=== PATIENT | female | born 1965 | race Caucasian/White ===

== ENCOUNTER 2017-03-16 15:03 | Emergency (ER) | payer SELFPAY ==
[2017-03-16 15:09] VITALS: BP 134/89; BMI 27.3
--- NOTE | 2017-03-16 15:39 | DR.GENAD ---
HPI - PCP Primary Care Physician: NORM - Complaint/Symptoms Chief Complaint:: PATIENT WAS SEEN IN [place] WEDNESDAY NIGHT FOR LEFT LEG PAIN. SWELLING HAS INCREASED AND LEG IS PAINFULL TO TOUCH. - Nurses notes reviewed Nurses Notes Review: Yes - Source History Provided: Patient - Mode of Arrival Mode of Arrival: Ambulatory - Timing Onset of Chief Complaint: 03/14/17 Came on: Gradually - Duration Duration: Constant How lon Duration: Days - Location Location: left leg - Severity Severity: Moderate - Associated Signs and Symptoms Associated Signs and Symptoms: swelling - Other History Other History: seen in [place] for same problem, negative doppler on pain meds PMH - PMH Past Medical History: Yes Past Medical History: Arthritis, COPD Past Surgical History: Yes Surgical History: , Cholecystectomy - Family History History of Family Medical Conditions: Yes Family Medical History: Diabetes Mellitus, Hypertension - Social History Does patient currently use any type of tobacco product: Yes Have you used tobacco products in the last 12 months: Yes Type of Tobacco Use: Cigarettes How many years tobacco product used: 30 Does any household member use tobacco: Yes Alcohol Use: None Do you use any recreational Drugs:: No Lives With: Alone Lives Where: Home - infectious screening In the last 2 months have you had wt loss of >10#?: NO Have you had fever, night sweats or hemotysis?: No Have you traveled outside the country in the last 6 months?: No Isolation: Standard ROS - Review of Systems Constitutional: No Symptoms Reported Eyes: No Symptoms Reported ENTM: No Symptoms Reported Respiratoy: No Symptoms Reported Cardiovascular: No Symptoms Reported Gastrointestinal/Abdominal: No Symptoms Reported Genitourinary: No Symptoms Reported Neurological: No Symptoms Reported Musculoskeletal: No Symptoms Reported Integumentary: No Symptoms Reported Hematologic/Lymphatic: No Symptoms Reported Endocrine: No Symptoms Reported Psychiatric: Anxiety All Other Systems: Reviewed and Negative PE - Vital Signs Vitals: Temperature 98.6 F Pulse Rate 84 Respiratory Rate 16 Blood Pressure 134/89 O2 Sat by Pulse Oximetry 100 - General Limitations: No Limitations General Appearance: Alert, In No Apparent Distress - Head Head Exam: Normal Inspection - Eyes Eye exam: Normal Appearance, EOMI. negative: Scleral Icterus, Conjunctival Injection - ENT ENT Exam: Normal Exam External Ear Exam: Normal External Inspection - Neck Neck Exam: Normal Inspection, Full ROM, Trachea Midline - Respiratory Respiratory Exam: Normal Lung Sounds Bilat. negative: Accessory Muscle Use, Respiratory Distress Respiratory Exam: Bilateral Clear to Auscultation - Cardiovascular Cardiovascular Exam: Regular Rate - Extremities Extremities Exam: Full ROM, Tenderness. negative: Normal Inspection (left leg swelling) - Back Back Exam: Normal Inspection, Full ROM - Neurologic Neurological Exam: Alert, Oriented X3, CN II-XII Intact - Psychiatric Psychiatric Exam: Anxious - Skin Skin Exam: Intact, Normal Color ROR - Labs Reviewed Result Diagrams: 03/16/17 16:03 03/16/17 16:03 Laboratory: WBC 14.2 X10^3/uL (3.6-10.0) H 03/16/17 16:03 RBC 4.46 X10^6/uL (3.5-5.4) 03/16/17 16:03 Hgb 13.4 g/dL (12.0-16.0) 03/16/17 16:03 Hct 40.9 % (36.0-47.0) 03/16/17 16:03 MCV 91.7 fL (80.0-100.0) 03/16/17 16:03 MCH 30.1 pg (27.0-34.0) 03/16/17 16:03 MCHC 32.8 g/dL (33.0-35.0) L 03/16/17 16:03 RDW 14.5 % (11.6-16.5) 03/16/17 16:03 Plt Count 357 X10^3/uL (150.0-450.0) 03/16/17 16:03 MPV 8.5 fL (7.4-11.0) 03/16/17 16:03 Neut % 55.8 % (42.0-75.0) 03/16/17 16:03 Lymph % 32.7 % (21.0-51.0) 03/16/17 16:03 [place] % 6.2 % (0.0-13.0) 03/16/17 16:03 Eos % 4.1 % (0.9-2.9) H 03/16/17 16:03 Baso % 1.2 % (0.2-1.0) H 03/16/17 16:03 Neut # 8.0 x10^3/uL (2.2-4.8) H 03/16/17 16:03 Lymph # 4.7 X10^3/uL (1.3-2.9) H 03/16/17 16:03 [place] # 0.9 x10^3/uL (0.3-0.8) H 03/16/17 16:03 Eos # 0.6 x10^3/uL (0.0-0.2) H 03/16/17 16:03 Baso # 0.2 X10^3/uL (0.0-0.1) H 03/16/17 16:03 Absolute Nucleated RBC 0.0 /100WBC 03/16/17 16:03 Sodium 142 mmol/L (136-145) 03/16/17 16:03 Corrected Sodium 142 mmol/L (136-145) 03/16/17 16:03 Potassium 3.5 mmol/L (3.5-5.1) 03/16/17 16:03 Chloride 105 mmol/L (98-107) 03/16/17 16:03 Carbon Dioxide 24.6 mmol/L (21-32) 03/16/17 16:03 BUN 8 mg/dL (7-18) 03/16/17 16:03 Creatinine 0.85 mg/dL (0.55-1.02) 03/16/17 16:03 Est GFR (MDRD) Af Amer > 60 (>60) 03/16/17 16:03 Est GFR (MDRD) Non-Af > 60 (>60) 03/16/17 16:03 Glucose 118 mg/dL (65-99) H 03/16/17 16:03 Calcium 9.2 mg/dL (8.5-10.1) 03/16/17 16:03 - XRAY XRAY Interpreted by: Radiologist XRAY Findings: Doppler: no DVT - Diagnosis Discharge Problem: Left leg swelling - Discharge Plan Condition: Stable Prescriptions: Azithromycin [Zithromax Z-Kulwinder 5-day] 1 dose PO DAILY #6 tab - Follow ups/Referrals Follow ups/Referrals: JONATAN DA SILVA [Primary Care Provider] - 3 days - Instructions
[2017-03-16 16:11] LABS: BASOPHILS # (AUTO) 0.2 X10^3/uL (0.0-0.1); BASOPHILS % (AUTO) 1.2 % (0.2-1.0); EOSINOPHILS # (AUTO) 0.6 x10^3/uL (0.0-0.2); EOSINOPHILS % (AUTO) 4.1 % (0.9-2.9); HEMATOCRIT 40.9 % (36.0-47.0); HEMOGLOBIN 13.4 g/dL (12.0-16.0); LYMPHOCYTES # (AUTO) 4.7 X10^3/uL (1.3-2.9); LYMPHOCYTES % (AUTO) 32.7 % (21.0-51.0); MEAN CORPUSCULAR HEMOGLOBIN 30.1 pg (27.0-34.0); MEAN CORPUSCULAR HGB CONC 32.8 g/dL (33.0-35.0); MEAN CORPUSCULAR VOLUME 91.7 fL (80.0-100.0); MEAN PLATELET VOLUME 8.5 fL (7.4-11.0); MONOCYTES # (AUTO) 0.9 x10^3/uL (0.3-0.8); MONOCYTES % (AUTO) 6.2 % (0.0-13.0); NEUTROPHILS % (AUTO) 55.8 % (42.0-75.0); PLATELET COUNT 357 X10^3/uL (150.0-450.0); RED BLOOD COUNT 4.46 X10^6/uL (3.5-5.4); RED CELL DISTRIBUTION WIDTH 14.5 % (11.6-16.5); WHITE BLOOD COUNT 14.2 X10^3/uL (3.6-10.0)
[2017-03-16 16:24] LABS: BLOOD UREA NITROGEN 8 mg/dL (7-18); CALCIUM 9.2 mg/dL (8.5-10.1); CARBON DIOXIDE 24.6 mmol/L (21-32); CHLORIDE 105 mmol/L (98-107); COR NA(FOR HYPERGLY) 142 mmol/L (136-145); CREATININE 0.85 mg/dL (0.55-1.02); GLUCOSE 118 mg/dL (65-99); SODIUM 142 mmol/L (136-145); eGFR BLACK RACES > 60 (>60); eGFR NON BLACK RACES > 60 (>60)
--- NOTE | 2017-03-16 16:32 | VAS ---
Lower extremity doppler sonogram Indication: Left leg swelling Comparison: None available TECHNIQUE: Multiple linton scale and color flow Doppler images of the deep venous system were obtaine d of the left lower extremity. FINDINGS: The deep venous system of the left lower extremity was evaluated from the level of the common femora l vein through the popliteal vein. Normal color flow and augmentation can be observed. In addition , normal compression is seen throughout the deep venous system. IMPRESSION: 1. Negative for left lower extremity DVT. Reported By:
== END 2017-03-16 17:03 | disposition home or self-care (01) ==
LOC: ER 15:12
DX: R22.42 Localized swelling, mass and lump, left lower limb (principal)
CPT/HCPCS: 36415; 80048; 85025; 93971; 99282; 99283

== ENCOUNTER → 2017-11-29 | Outpatient (CLI) | payer OTHER ==
--- NOTE | 2017-11-30 15:59 | MG ---
HISTORY: SCREENING Comparison: May 06, 2015 and June 17, 2009 FINDINGS: Bilateral CC and MLO projections of the right and left breast were obtained. Scattered fibroglandula r tissue is seen to be present without significant interval change. No suspicious architectural dist ortion, mass or clustered microcalcifications can be observed to suggest malignancy. No skin thicken ing or nipple retraction is appreciated. No pathological lymphadenopathy can be identified. Benign- appearing calcifications are noted within the right and left breast. IMPRESSION: NO RADIOGRAPHIC EVIDENCE OF MALIGNANCY. ACR CATEGORY 2 - benign findings. FOLLOW-UP EXAM 1 YEAR. Diagnostic CAD was utilized and reviewed. * 0 (ZERO) - ASSESSMENT INCOMPLETE; ADDITIONAL IMAGING IS NEEDED. * 1/1 (ONE) - NEGATIVE. * 2/II (TWO) - BENIGN FINDINGS. * 3/III (THREE) - PROBABLY BENIGN FINDING; SHORT INTERVAL FOLLOW-UP SUGGESTED. * 4/IV (FOUR) - SUSPICIOUS ABNORMALITY; BIOPSY SHOULD BE CONSIDERED. * 5/V - HIGHLY SUSPICIOUS OF MALIGNANCY; BIOPSY SHOULD BE PERFORMED. A NEGATIVE X-RAY REPORT SHOULD NOT DELAY BIOPSY IF A DOMINANT OR CLINICALLY SUSPICIOUS MASS IS PRESENT; 4 TO 8 PERCENT OF CANCERS ARE NOT IDENTIFIED BY X-RAY. A NEGA TIVE REPORT MAY REINFORCE THE CLINICAL IMPRESSION. ADENOSIS AND DENSE BREASTS MAY OBSCURE AN UNDERLY ING NEOPLASM. Reported By:
== END ==
LOC: RAD 09:14
PROVIDERS: ATTEND Internal Medicine
DX: Z12.31 Encounter for screening mammogram for malignant neoplasm of breast (principal)
CPT/HCPCS: 77067

== ENCOUNTER 2024-12-15 11:07 | Observation (INO) ==
[2024-12-15 12:11] LABS: BASOPHILS # (AUTO) 0.1 X10^3/uL (0.0-0.1); BASOPHILS % (AUTO) 1.2 % (0.2-1.0); EOSINOPHILS # (AUTO) 0.1 x10^3/uL (0.0-0.2); HEMOGLOBIN 15.1 g/dL (12.0-16.0); LYMPHOCYTES # (AUTO) 2.5 X10^3/uL (1.3-2.9); LYMPHOCYTES % (AUTO) 19.7 % (21.0-51.0); MEAN CORPUSCULAR HEMOGLOBIN 31.3 pg (27.0-34.0); MEAN CORPUSCULAR HGB CONC 32.9 g/dL (33.0-35.0); MEAN CORPUSCULAR VOLUME 94.9 fL (80.0-100.0); MEAN PLATELET VOLUME 7.9 fL (7.4-11.0); MONOCYTES # (AUTO) 0.8 x10^3/uL (0.3-0.8); MONOCYTES % (AUTO) 6.3 % (0.0-13.0); NEUTROPHILS # (AUTO) 8.9 x10^3/uL (2.2-4.8); NEUTROPHILS % (AUTO) 71.8 % (42.0-75.0); PLATELET COUNT 345 X10^3/uL (150.0-450.0); RED BLOOD COUNT 4.84 X10^6/uL (3.5-5.4); RED CELL DISTRIBUTION WIDTH 14.9 % (11.6-16.5); WHITE BLOOD COUNT 12.4 X10^3/uL (3.6-10.0)
--- NOTE | 2024-12-15 12:19 | EKG ---
Test Reason : near sync Blood Pressure : */* mmHG Vent. Rate : 75 BPM Atrial Rate : 75 BPM P-R Int : 140 ms QRS Dur : 88 ms QT Int : 360 ms P-R-T Axes : 50 72 70 degrees QTc Int : 402 ms Normal sinus rhythm Normal ECG No previous ECGs available Confirmed by Lowell He MD ([id number]) on 12/15/2024 1:37:59 PM Referred By: Confirmed By: Lowell He MD
[2024-12-15 12:27] LABS: ALANINE AMINOTRANSFERASE 20 Units/L (12-78); ALBUMIN 3.1 g/dL (3.4-5.0); ALKALINE PHOSPHATASE 85 Units/L (46-116); ASPARTATE AMINO TRANSFERASE 16 Units/L (15-37); BLOOD UREA NITROGEN 10 mg/dL (7-18); CALCIUM 8.9 mg/dL (8.5-10.1); CARBON DIOXIDE 26.1 mmol/L (21-32); CHLORIDE 101 mmol/L (98-107); COR CA(FOR HYPOALB) 9.6 mg/dL (8.5-10.1); CREATINE KINASE 62 Units/L (26-192); CREATININE 0.74 mg/dL (0.55-1.02); GLUCOSE 93 mg/dL (65-99); POTASSIUM 4.2 mmol/L (3.5-5.1); SODIUM 137 mmol/L (136-145); TOTAL PROTEIN 7.5 g/dL (6.4-8.2); eGFR NON BLACK RACES > 60 (>60)
--- NOTE | 2024-12-15 12:31 | CT ---
EXAMINATION: BRAIN W/O CON HISTORY: DIZZINESS; COMPARISON: None. TECHNIQUE: Contiguous noncontrast axial CT images of the brain. Images reviewed in the axial imaging plane with reformatted sagittal and coronal images.The above CT scan was done with automated exposure control a nd the mA and kV was adjusted to obtain quality images according to patient size. FINDINGS: No evidence of acute intracranial hemorrhage, mass effect, or midline shift. Normal linton-white matte r differentiation. Ventricles normal size and shape. IMPRESSION: No acute intracranial process seen. THIS IS AN ELECTRONICALLY VERIFIED FINAL REPORT 12/15/2024 12:27 PM - Electronically signed by Lynda Faith MD
--- NOTE | 2024-12-15 12:43 | RAD ---
EXAM:CHEST, 1 VIEWHISTORY:Syncope;COMPARISON:No relevant prior studies were available for comparison at the time of interpretation.TECHNIQUE:CHEST, 1 VIEWFINDINGS:Chest:Lines and tubes: Cardiac leads overlie the chest.Mediastinum: Cardiac and mediastinal shadow is within normal limits for size and contour.Pulmonary vessels: No pulmonary vascular congestion.Lung valencia: No suspicious airspace opacity.Pleura: No effusion. No pneumothorax.Bones and soft tissues: No acute osseous or soft tissue abnormality.IMPRESSION:1. No acute cardiopulmonary abnormalityTHIS IS AN ELECTRONICALLY VERIFIED FINAL REPORT12/15/2024 12:39 PM - Electronically signed by Bill Mahoney MD
[2024-12-15] MEDS: ANTIVERT TAB 25 MG PO ONE (12:51)
--- NOTE | 2024-12-15 13:38 | DR.DIZZY ---
HPI Time seen Time Seen by Provider: 12/15/24 11:43 PCP Primary Care Physician: nfd Complaint Chief Complaint Doctor Comments: 59 yo F, no known med hx, c/o 3 days of dizziness, described as being off balance, and as if the world is moving. Today was at a [id number], began having acute onset of L-sided numbness, including face, LUE & LLE. Numbness lasted ~30 min, gone by my exam. Denies other complaints. Chief Complaint:: Pt states she was at [facility] being seen for dizziness, n/v, decreased UOP, decreased PO intake, lower abdominal pain; she started c/o tingling in left arm, left hand, left leg, tingling in lips and tongue, worsening dizziness, "floaters" in left visual field. Pt states provider at [facility] was able to look in her ears before EMS was called and told her she had fluid in her ears; she was going to have her urine ckd also but EMS was called before that was done. Self Treatment fo Chief Complaint: Pt c/o intermittent painn in the back of her neck and behind her ears for last 3 days, currently denies headache, denies diarrhea, denies cough Pt was given aspirin 81 mg [facility] at [facility] COVID-19 Coronavirus risk:travel/contact w/high risk person: No Has patient experienced Coronavirus symptoms: No Source History Provided: Patient Mode of Arrival Mode of Arrival: EMS Timing Onset of Chief Complaint: 12/12/24 Context Stroke Symptoms: denies None PMH PMH Past Medical History: Yes Past Medical History: Arthritis Past Medical History Comment: chronic back pain Past Surgical History: Yes Surgical History: , Cholecystectomy and Hysterectomy Family History History of Family Medical Conditions: Yes Family Medical History: Diabetes Mellitus and Hypertension Social History Does patient currently use any type of tobacco product: Yes Have you used tobacco products in the last 12 months: Yes Type of Tobacco Use: Cigarettes Does any household member use tobacco: Yes Alcohol Use: None Do you use any recreational Drugs:: No Lives With: Spouse and Family Lives Where: Home Travel Risk Coronavirus risk:travel/contact w/high risk person: No Has patient experienced Coronavirus symptoms: No Infectious screening In the last 2 months have you had wt loss of >10#?: NO Have you had fever, night sweats or hemotysis?: No Have you traveled outside the country in the last 6 months?: No Isolation: Standard ROS Review of Systems Constitutional: Other (dizziness) Neurological: Numbness (L side of body) PE Vital Signs Vitals: Vital Signs Temperature 97.9 F Pulse Rate 86 Pulse Rate 81 Pulse Rate 79 Pulse Rate 86 Pulse Rate 78 Pulse Rate 80 Pulse Rate 81 Pulse Rate 76 Pulse Rate 80 Pulse Rate 82 Respiratory Rate 16 Respiratory Rate 15 Respiratory Rate 21 Respiratory Rate 16 Respiratory Rate 16 Respiratory Rate 17 Respiratory Rate 14 Respiratory Rate 13 Respiratory Rate 18 Blood Pressure 132/91 Blood Pressure 141/93 Blood Pressure 146/92 Blood Pressure 151/89 O2 Sat by Pulse Oximetry 96 O2 Sat by Pulse Oximetry 95 O2 Sat by Pulse Oximetry 97 O2 Sat by Pulse Oximetry 95 O2 Sat by Pulse Oximetry 97 O2 Sat by Pulse Oximetry 97 O2 Sat by Pulse Oximetry 95 O2 Sat by Pulse Oximetry 95 O2 Sat by Pulse Oximetry 96 O2 Sat by Pulse Oximetry 98 General Limitations: No Limitations General Appearance: Alert and In No Apparent Distress Head Head Exam: Normal Inspection Eyes Eye exam: Normal Appearance ENT ENT Exam: Normal Exam, Normal Oropharynx and Normal External Ear Exam Neck Neck Exam: Normal Inspection and Full ROM Chest Chest Inspection: Normal Inspection Respiratory Respiratory Exam: Normal Lung Sounds Bilat Cardiovascular Cardiovascular Exam: Regular Rate and Normal Rhythm Abdominal Exam Abdominal Exam: Normal Inspection, Normal Bowel Sounds and Soft Rectal Rectal Exam: Deferred Extremeties Extremities Exam: Normal Inspection and Full ROM Back Back Exam: Normal Inspection and Full ROM Neurologic Neurological Exam: Alert and Oriented X3 Psychiatric Psychiatric Exam: Normal Affect and Normal Mood Skin Skin Exam: Warm, Dry, Intact and Normal Color ROR Labs Reviewed 12/15/24 12:00 12/15/24 12:00 Laboratory: WBC 12.4 X10^3/uL (3.6-10.0) H 12/15/24 12:00 RBC 4.84 X10^6/uL (3.5-5.4) 12/15/24 12:00 Hgb 15.1 g/dL (12.0-16.0) 12/15/24 12:00 Hct 46.0 % (36.0-47.0) 12/15/24 12:00 MCV 94.9 fL (80.0-100.0) 12/15/24 12:00 MCH 31.3 pg (27.0-34.0) 12/15/24 12:00 MCHC 32.9 g/dL (33.0-35.0) L 12/15/24 12:00 RDW 14.9 % (11.6-16.5) 12/15/24 12:00 Plt Count 345 X10^3/uL (150.0-450.0) 12/15/24 12:00 MPV 7.9 fL (7.4-11.0) 12/15/24 12:00 Neut % (Auto) 71.8 % (42.0-75.0) 12/15/24 12:00 Lymph % (Auto) 19.7 % (21.0-51.0) L 12/15/24 12:00 [place] % (Auto) 6.3 % (0.0-13.0) 12/15/24 12:00 Eos % (Auto) 1.0 % (0.9-2.9) 12/15/24 12:00 Baso % (Auto) 1.2 % (0.2-1.0) H 12/15/24 12:00 Neut # (Auto) 8.9 x10^3/uL (2.2-4.8) H 12/15/24 12:00 Lymph # (Auto) 2.5 X10^3/uL (1.3-2.9) 12/15/24 12:00 [place] # (Auto) 0.8 x10^3/uL (0.3-0.8) 12/15/24 12:00 Eos # (Auto) 0.1 x10^3/uL (0.0-0.2) 12/15/24 12:00 Baso # (Auto) 0.1 X10^3/uL (0.0-0.1) 12/15/24 12:00 Absolute Nucleated RBC 0.0 /100WBC 12/15/24 12:00 Sodium 137 mmol/L (136-145) 12/15/24 12:00 Corrected Sodium TNP 12/15/24 12:00 Potassium 4.2 mmol/L (3.5-5.1) 12/15/24 12:00 Chloride 101 mmol/L (98-107) 12/15/24 12:00 Carbon Dioxide 26.1 mmol/L (21-32) 12/15/24 12:00 BUN 10 mg/dL (7-18) 12/15/24 12:00 Creatinine 0.74 mg/dL (0.55-1.02) 12/15/24 12:00 Est GFR (MDRD) Af Amer > 60 (>60) 12/15/24 12:00 Est GFR (MDRD) Non-Af > 60 (>60) 12/15/24 12:00 Glucose 93 mg/dL (65-99) 12/15/24 12:00 Calcium 8.9 mg/dL (8.5-10.1) 12/15/24 12:00 Corrected Calcium 9.6 mg/dL (8.5-10.1) 12/15/24 12:00 Total Bilirubin 0.20 mg/dL (0.2-1.0) 12/15/24 12:00 AST 16 Units/L (15-37) 12/15/24 12:00 ALT 20 Units/L (12-78) 12/15/24 12:00 Alkaline Phosphatase 85 Units/L (46-116) 12/15/24 12:00 Creatine Kinase 62 Units/L (26-192) 12/15/24 12:00 Troponin I High Sens 7.2 ng/L (4.0-60.0) 12/15/24 12:00 Total Protein 7.5 g/dL (6.4-8.2) 12/15/24 12:00 Albumin 3.1 g/dL (3.4-5.0) L 12/15/24 12:00 Globulin 4.4 g/dL (2.5-4.5) 12/15/24 12:00 Albumin/Globulin Ratio 0.7 Ratio (1.1-2.1) L 12/15/24 12:00 Opioid Opioid Risk Tool Age (Eduardo box if 16-45): No History of Preadolescent Sexual Abuse: No Total: 0 Total Score Risk Category: Low Risk Copyright: Nii FRANCES predicting aberrant behaviors Discharge Plan Diagnosis Discharge Problem: Brain TIA, Dizziness Hospital Course Hospital Course: Pt will be admitted for further TIA workup. Accepted by Dr Rich at 1328. Discharge Plan Patient Disposition: ADMITTED INPATIENT Condition: Stable Prescriptions: No Action [facility] Concerns: Post Hospitalization: new medications and changes needed to prevent readmission or further decline. Pt educated and given instructions on all concerns. Plan of Treatment: Continue with present treatment and follow up plan. Pt is to keep follow up appointment as instructed and take medications as ordered. Orders to Discharge Patient Discharge Orders: Transfer (Routine); Ordered 12/15/24 Ordered By: Edgar Reyes Follow ups/Referrals Follow ups/Referrals: NFD,None [Primary Care Provider] - 3 days Instructions Stand Alone Forms: Find Help Web Site, Post Hospital Follow Up Care
[2024-12-15 14:46] LABS: BILIRUBIN,URINE NEGATIVE (NEGATIVE); BLOOD/HEMOGLOBIN,URINE 4+ (NEGATIVE); GLUCOSE, URINE NEGATIVE (NEGATIVE); KETONES,URINE 2+ (NEGATIVE); LEUKOCYTE ESTERASE ,URINE 1+ (NEGATIVE); NITRITES,URINE POSITIVE (NEGATIVE); PROTEIN,URINE 1+ (NEGATIVE); UROBILINOGEN,URINE NORMAL (NORMAL)
[2024-12-15 14:49] LABS: APPEARANCE,URINE SLIGHTLY HAZY (CLEAR); COLOR,URINE YELLOW (YELLOW)
[2024-12-15 14:59] VITALS: BMI 29.7
[2024-12-15 15:00] LABS: BACTERIA,URINE 4+ /HPF (NEGATIVE); SQUAMOUS EPITHELIAL CELL,UR FEW /HPF (NEGATIVE)
--- NOTE | 2024-12-15 16:10 | MRI ---
EXAM: MRA HEAD W/O CON HISTORY: Dizziness/numbness COMPARISON: None. TECHNIQUE: MRA images were obtained without the administration of intravenous contrast utilizing a routine time- of-flight protocol. 3D reconstructed images were created for further characterization by the technol ogist. FINDINGS: Anterior Circulation: Right internal carotid artery: Unremarkable. Intracranial segment is patent with no significant steno sis. No aneurysm. Right middle cerebral artery: No occlusion or significant stenosis. No aneurysm. Right anterior cerebral artery: Unremarkable. No occlusion or significant stenosis. No aneurysm. Left internal carotid artery: Unremarkable. Intracranial segment is patent with no significant stenos is. No aneurysm. Left middle cerebral artery: Unremarkable. No occlusion or significant stenosis. No aneurysm. Left anterior cerebral artery: Unremarkable. No occlusion or significant stenosis. No aneurysm. Posterior Circulation: Right vertebral artery: Unremarkable. No occlusion or significant stenosis. No aneurysm. Left vertebral artery: Unremarkable. No occlusion or significant stenosis. No aneurysm. Basilar artery: High-grade short-segment stenosis versus artifact over the last 5 mm of the distal ba silar artery. Superior cerebellar arteries are patent. Right posterior cerebral artery: Unremarkable. No occlusion or significant stenosis. No aneurysm. Left posterior cerebral artery: Unremarkable. No occlusion or significant stenosis. No aneurysm. IMPRESSION: High-grade short-segment stenosis versus artifact over the last 5 mm of the distal basilar artery. S uperior cerebellar and posterior cerebral arteries are widely patent. Remainder of the intracranial arterial structures are unremarkable. Recommend CTA imaging of the head for further confirmation. THIS IS AN ELECTRONICALLY VERIFIED FINAL REPORT 12/15/2024 4:07 PM - Electronically signed by Codey Neff MD
[2024-12-15] MEDS: SOLU-Medrol 125 MG VIAL IVP ONE (16:11)
[2024-12-15] MEDS: ANTIVERT TAB 25 MG PO PRN (16:14)
[2024-12-15] MEDS: ZOFRAN INJ 4 MG VIAL IVP PRN (16:14)
--- NOTE | 2024-12-15 18:24 | MRI ---
EXAM: BRAIN W/O CON HISTORY: TIA, DIZZINESS, LT SIDE NUMBNESS; COMPARISON: CT head without contrast from December 15, 2024 TECHNIQUE: Non-contrast MRI images of the brain were obtained utilizing a routine protocol. FINDINGS: Mild periventricular chronic microvascular disease. Age related global atrophy. No abnormal signal in the dural sinuses on the sagittal T1 sequence. Pituitary gland and stalk appear normal. No mass effect on the optic chiasm. No Chiari 1 malformation. Imaged portion of the spine and spinal cord appear grossly normal. No restricted diffusion. Flow voids appear normal on the T2 sequence. No intracranial, extra-axial, fluid collection. No mass, mass effect or midline shift. No abnormal areas of acute T2 signal in the brain parenchyma. No blooming artifact in the brain parenchyma. Sinuses are well aerated Mastoid air cells are well aerated. Globes and intra-orbital contents appear normal. IMPRESSION: 1. No acute intracranial abnormality identified. 2. Mild periventricular chronic microvascular disease and age related global atrophy. THIS IS AN ELECTRONICALLY VERIFIED FINAL REPORT 12/15/2024 6:21 PM - Electronically signed by Codey Neff MD
[2024-12-15] MEDS: NS 100 ML IV 100 ML ONE (20:07)
[2024-12-15] MEDS: OMNIPAQUE 350 mg/mL 100 mL BTL 100 ML ONE (20:09)
--- NOTE | 2024-12-15 20:24 | EKG ---
Test Reason : TIA Blood Pressure : */* mmHG Vent. Rate : 85 BPM Atrial Rate : 85 BPM P-R Int : 154 ms QRS Dur : 84 ms QT Int : 356 ms P-R-T Axes : 67 59 63 degrees QTc Int : 423 ms Normal sinus rhythm horrible baseline artifact Biatrial enlargement Abnormal ECG When compared with ECG of 15-DEC-2024 12:16, No significant change was found Confirmed by Lowell He MD ([id number]) on 12/16/2024 7:46:46 AM Referred By: Confirmed By: Lowell He MD
--- NOTE | 2024-12-15 20:47 | CT ---
EXAM:BRAIN CTAHISTORY:TIA, DIZZINESS;COMPARISON:CT head without contrast from December 15, 2024 at 12:12 p.m.TECHNIQUE:Axial CT angiography of the head with 100 mL Omnipaque 350 intravenous contrast. Coronal, sagittal and MIP and/or 3D reconstructed images were created for further characterization by the technologist. Noncontrast head CT was also provided for further characterization.Radiation dose: 929.24 mGy-cm total DLPFINDINGS:Anterior Circulation:Right internal carotid artery: No clinically significant stenosis, occlusion or aneurysm.Right middle cerebral artery: No clinically significant stenosis, occlusion or aneurysm.Right anterior cerebral artery: No clinically significant stenosis, occlusion or aneurysm.Left internal carotid artery: No clinically significant stenosis, occlusion or aneurysm.Left middle cerebral artery: No clinically significant stenosis, occlusion or aneurysm.Left anterior cerebral artery: No clinically significant stenosis, occlusion or aneurysm.Posterior Circulation:Right vertebral artery: No clinically significant stenosis, occlusion or aneurysm.Left vertebral artery: No clinically significant stenosis, occlusion or aneurysm.Basilar artery: No clinically significant stenosis, occlusion or aneurysm.Right posterior cerebral artery: No clinically significant stenosis, occlusion or aneurysm.Left posterior cerebral artery: No clinically significant stenosis, occlusion or aneurysm.Venous: No filling defects in the dural venous sinuses.Brain: No abnormal areas of acute attenuation in the brain parenchyma.Bones/joints: No acute osseous abnormality.Soft tissues: Unremarkable.IMPRESSION:1. No acute intracranial abnormality identified, specifically, no clinically significant stenosis, occlusion or aneurysm identified involving the intracranial arterial structures.2. No evidence of dural venous thrombosis.THIS IS AN ELECTRONICALLY VERIFIED FINAL REPORT12/15/2024 8:33 PM - Electronically signed by Codey Neff MD
--- NOTE | 2024-12-16 01:07 | EKG ---
Test Reason : TIA Blood Pressure : */* mmHG Vent. Rate : 86 BPM Atrial Rate : 86 BPM P-R Int : 142 ms QRS Dur : 76 ms QT Int : 352 ms P-R-T Axes : 73 48 69 degrees QTc Int : 421 ms Normal sinus rhythm Possible Left atrial enlargement Borderline ECG When compared with ECG of 15-DEC-2024 20:02, (Unconfirmed) No significant change was found Confirmed by Lowell He MD ([id number]) on 12/16/2024 7:45:40 AM Referred By: Confirmed By: Lowell He MD
[2024-12-16 02:31] LABS: BASOPHILS # (AUTO) 0.1 X10^3/uL (0.0-0.1); BASOPHILS % (AUTO) 1.3 % (0.2-1.0); LYMPHOCYTES # (AUTO) 1.4 X10^3/uL (1.3-2.9); LYMPHOCYTES % (AUTO) 14.4 % (21.0-51.0); MEAN CORPUSCULAR HEMOGLOBIN 31.6 pg (27.0-34.0); MEAN CORPUSCULAR HGB CONC 33.3 g/dL (33.0-35.0); MEAN CORPUSCULAR VOLUME 94.9 fL (80.0-100.0); MONOCYTES # (AUTO) 0 x10^3/uL (0.3-0.8); MONOCYTES % (AUTO) 0.3 % (0.0-13.0); NEUTROPHILS # (AUTO) 8.1 x10^3/uL (2.2-4.8); PLATELET COUNT 332 X10^3/uL (150.0-450.0); RED BLOOD COUNT 4.43 X10^6/uL (3.5-5.4); WHITE BLOOD COUNT 9.7 X10^3/uL (3.6-10.0)
[2024-12-16 02:35] LABS: INR 0.98 (0.8-1.3)
[2024-12-16 02:57] LABS: ALANINE AMINOTRANSFERASE 18 Units/L (12-78); ALBUMIN 2.8 g/dL (3.4-5.0); ALKALINE PHOSPHATASE 80 Units/L (46-116); ASPARTATE AMINO TRANSFERASE 9 Units/L (15-37); BLOOD UREA NITROGEN 17 mg/dL (7-18); CALCIUM 8.9 mg/dL (8.5-10.1); CARBON DIOXIDE 25.5 mmol/L (21-32); CHLORIDE 101 mmol/L (98-107); CHOL/HDL RATIO 3.3 (0.0-5.0); CHOLESTEROL 160 mg/dL (0-200); COR CA(FOR HYPOALB) 9.9 mg/dL (8.5-10.1); COR NA(FOR HYPERGLY) 138 mmol/L (136-145); CREATININE 1.02 mg/dL (0.55-1.02); GLUCOSE 180 mg/dL (65-99); HDL CHOLESTEROL 49 mg/dL (40-60); MAGNESIUM 1.7 mg/dL (2.0-2.9); POTASSIUM 4.4 mmol/L (3.5-5.1); SODIUM 136 mmol/L (136-145); TOTAL PROTEIN 6.9 g/dL (6.4-8.2); TRIGLYCERIDES 53 mg/dL (0-150); eGFR NON BLACK RACES 59 (>60)
[2024-12-16 08:31] VITALS: RESP 22; O2SAT 96
--- NOTE | 2024-12-16 10:38 | RAD ---
EXAM:AP chestHISTORY:CVACOMPARISON:12/15/2024 [email or web address] There is no mediastinal or hilar or pleural abnormality.IMPRESSION:No change/acute abnormality demonstrated.THIS IS AN ELECTRONICALLY VERIFIED FINAL REPORT12/16/2024 10:35 AM - Electronically signed by Sanford Leiva MD
[2024-12-16] MEDS: ROCEPHIN VIAL 1 GRAM 1 G in NS 100 ML IV 100 ML IV SCH (11:52)
[2024-12-16 12:46] VITALS: BP 164/93; PULSE 85; TEMP 97.7
== END 2024-12-16 13:50 | disposition home or self-care (01) ==
LOC: MED/SURG 11:07 → ER 11:07 → MED/SURG 14:10
PROVIDERS: ADMIT Internal Medicine; ATTEND Internal Medicine
DX: B96.1 Klebsiella pneumoniae [K. pneumoniae] as the cause of diseases classified elsewhere; N39.0 Urinary tract infection, site not specified; Z16.11 Resistance to penicillins; Z72.0 Tobacco use; R42 Dizziness and giddiness; R94.31 Abnormal electrocardiogram [ECG] [EKG]; R55 Syncope and collapse; R20.2 Paresthesia of skin; E83.42 Hypomagnesemia